=== PATIENT | female | born 1990 | race Caucasian/White ===

== ENCOUNTER 2021-02-16 15:17 | Emergency (ER) | payer OTHER, SELFPAY ==
[2021-02-16 15:18] VITALS: BP 161/84; PULSE 85; RESP 18; TEMP 36.2; O2SAT 100; BMI 23.7
--- NOTE | 2021-02-16 15:46 | EKG12_ITS ---
Test Reason : CP Blood Pressure : / mmHG Vent. Rate : 089 BPM Atrial Rate : 089 BPM P-R Int : 162 ms QRS Dur : 084 ms QT Int : 352 ms P-R-T Axes : 071 066 063 degrees QTc Int : 428 ms Normal sinus rhythm with sinus arrhythmia Normal ECG Confirmed by SAM WEST, DONALD ([id number]), manager editorial YARIEL FONTAINE ([id number]) on 02/17/2021 11:27:31 AM Referred By: THANIA Confirmed By:DONALD VARGAS MD
--- NOTE | 2021-02-16 15:47 | ED.VIS.CHEST ---
HPI History of Present Illness Chief Complaint: Chest Pain Narrative Narrative: Patient presenting with chest pain for the last 24 hours. She describes as left parasternal and mild. She states that the pain does not radiate anywhere. She states is achy in nature. She has no fever, cough, shortness of breath. She denies any trauma. She states she is dealt with pain in her chest for most of her life due to anxiety. She is currently on Adderall which is the newest medication but she has been taking this for a while. She states that this pain is different than what she is had in the past. She expressed her concern to her primary care doctor who told her to come to the ER for an evaluation. The patient states that she has no cardiac history and no history of early cardiac disease in her family. She has no DVT/PE risk factors and no history. She states other than anxiety and ADHD she has no medical problems. PFSH PFSH Medical History ADHD Anxiety Asthma Depression Former smoker Home Medications albuterol sulfate 1 - 2 puff INHALATION Q4H PRN PRN 02/16/21 [History Last Taken Unknown] dextroamphetamine-amphetamine [Adderall XR] 15 mg PO DAILY 02/16/21 [History Last Taken Unknown] vortioxetine [Trintellix] 10 mg PO DAILY 02/16/21 [History Last Taken Unknown] Allergy/AdvReac Type Severity Reaction Status Date / Time amoxicillin Allergy Rash Verified 02/16/21 15:20 Social History Smoking Status: Former smoker [facility] ED Constitutional Constitutional ED: Denies chills or fever(s) Eyes Eyes: Denies blurry vision or change in vision ENT ENT ED: Denies rhinorrhea or sore throat Cardiovascular Cardiovascular: Reports chest pain; Denies palpitations Respiratory/Chest Respiratory/Chest: Denies cough, dyspnea, dyspnea on exertion or sputum Gastrointestinal Gastrointestinal: Denies abdominal pain, nausea or vomiting Genitourinary Genitourinary ED: Denies dysuria or hematuria Musculoskeletal Musculoskeletal: Denies arthralgias or myalgias Integumentary Denies abscess or rash Neurologic Neurologic: Denies headache(s) or weakness EXAM Physical Exam Const Vital Signs: 02/16/21 15:18 02/16/21 15:55 02/16/21 16:21 Temperature 97.2 F L Temperature Source Temporal Pulse Rate 85 72 Respiratory Rate 18 15 Respiratory Effort Normal Blood Pressure 161/84 H 132/89 H Blood Pressure Mean 109 103 Pulse Ox 100 98 Oxygen Delivery Method Room Air Room Air Room Air 02/16/21 19:33 02/16/21 20:25 Temperature Temperature Source Pulse Rate 78 77 Respiratory Rate 16 18 Respiratory Effort Blood Pressure 132/95 H 122/110 H Blood Pressure Mean 107 Pulse Ox Oxygen Delivery Method Positive well developed General Appearance ED: well developed and NAD; Negative for pallor HEENT Reports moist mucous membranes normocephalic Eyes PERRL General Eye ED: Yes pale conjunctiva Chest Wall inspection of chest normal and palpation of chest normal Resp normal respiratory effort and clear to auscultation bilaterally Effort and Inspection: respiratory distress Cardio regular rate and regular rhythm GI normal to inspection, nondistended, normoactive bowel sounds Neuro oriented x3 Sensorium / Orientation: awake and alert Skin General Skin Exam: Negative for jaundice or pallor Heart Score History: Slightly/Non-Suspicious ECG: Normal Age: </= 45 years Risk Factors: No Risk Factors Troponin: </= Normal Limit Score: 0 MDM MDM MDM Narrative Medical decision making narrative: Patient presenting with left-sided chest pain. She does not have any cardiac or PE risk factors. She is PERC negative. Her vital signs are stable and she is afebrile. She was told to come to the ER by her primary care physician because she had chest pain. On exam this is not reproducible. Her lungs are clear to auscultation. EKG on my interpretation shows a sinus rhythm with a ventricular of 89 bpm without sign of ischemic change. Chest x-ray my interpretation shows no acute cardiopulmonary process and the radiologist does agree. CBC, BMP are unremarkable. Initial troponin is 5. Delta troponin is 4. Given patient's negative work-up I feel she is safe to be discharged home. I have a low suspicion for ACS and the patient again is PERC negative. Patient be discharged home in stable condition. Impression: 1. Chest pain noncardiac Lab Data Attestation: I reviewed the patient's lab results. Labs: Laboratory Results - last 24 hr 02/16/21 02/16/21 02/16/21 15:35 15:35 18:14 WBC 7.9 RBC 4.60 Hgb 13.7 Hct 41.6 MCV 90.4 MCH 29.8 MCHC 32.9 RDW Std Deviation 39.8 RDW Coeff of [place] 12.0 Plt Count 298 MPV 9.3 Immature Gran % (Auto) 0.300 Neut % (Auto) 56.1 Lymph % (Auto) 34.3 [place] % (Auto) 7.7 Eos % (Auto) 0.8 Baso % (Auto) 0.8 Absolute Neuts (auto) 4.4 Absolute Lymphs (auto) 2.71 Nucleated RBC % 0 Sodium 139 Potassium 3.6 Chloride 106 Carbon Dioxide 27.0 Anion Gap 6 BUN 14 Creatinine 0.96 Estim Creat Clear Calc 79.49 Est GFR (MDRD) Af Amer 87 Est GFR (MDRD) Non-Af 72 BUN/Creatinine Ratio 14.6 Glucose 107 H Calcium 9.6 Troponin I High Sens 5 4 Radiography Diagnostic Testing: Clinical Impression(s) from Imaging Studies Chest X-Ray 02/16/21 16:12 IMPRESSION: Nonacute portable x-ray examination of the chest. Electronically Signed: Mark Go MD ([place]) at 16:23 EST , Service support , Discharge Plan Triage Chief Complaint: Chest Pain ED Provider: Christopher Molina Dx/Rx/DC Orders Instructions: ED Chest Pain, Noncardiac Prescriptions: No Action albuterol sulfate 90 mcg/actuation HFA aerosol inhaler 1 - 2 puff INHALATION Q4H PRN PRN (Reason: Wheezing) RF: 0 dextroamphetamine-amphetamine [Adderall XR] 15 mg capsule,extended release 24hr 15 mg PO DAILY RF: 0 Trintellix 10 mg tablet 10 mg PO DAILY RF: 0 Primary Care Provider: Michelle Crespo Referrals: Michelle Crespo MD [Primary Care Provider] - Disposition Disposition: Home, Self Care Discharge Date/Time: 02/16/21 20:26
[2021-02-16 15:55] VITALS: O2SAT 98
[2021-02-16 16:11] LABS: Absolute Lymphocyte Count 2.71 X10^3/uL (0.83-4.51); Absolute Neutrophil Count 4.4 X10^3/uL (2.0-7.7); Basophil# 0.06 X10^3/uL; Basophil% 0.8 % (0-1); Eosinophil# 0.06 X10^3/uL; Eosinophils% 0.8 % (0-5); Hematocrit 41.6 % (37-47); Hemoglobin 13.7 g/dL (12.0-15.0); Lymphocyte # 2.71 X10^3/ul (0.83-4.51); Lymphocyte % 34.3 % (19-41); Mean Corp Hgb Conc 32.9 g/dL (32-36); Mean Corpuscular Hgb 29.8 pg (27.0-32.0); Mean Corpuscular Volume 90.4 fL (81-99); Mean Platelet Vol. 9.3 fl (6.2-12.0); Monocyte# 0.61 X10^3/uL; Monocyte% 7.7 % (0-10); NRBC Flagged by Analyzer 0 % (0-5); Neutrophil # 4.44 X10^3/uL (2.7-7.7); Neutrophil % 56.1 % (47-70); Platelet Count 298 K/mm3 (150-450); RBC Distribution Width SD 39.8 fl (35.1-43.9); White Blood Count 7.9 K/mm3 (4.4-11.0)
--- NOTE | 2021-02-16 16:12 | RAD_ITS ---
STUDY: X-RAY CHEST REASON FOR EXAM: Female, 30 years old. chest pain TECHNIQUE: AP COMPARISON: None. FINDINGS: EKG leads project over the chest. The lungs are clear and expanded. There is no demonstrated pleural abnormality. Normal size heart. Normal mediastinum and yessi. Normal visualized pulmonary arteries. Normal visualized aortic arch and descending thoracic aorta. Normal visualized thoracic spine. Normal visualized ribs, clavicles, and shoulders. There is no demonstrated abnormality of the visualized soft tissue structures of the upper abdomen. RAD/Chest 1 View (Portable) IMPRESSION: Nonacute portable x-ray examination of the chest. Electronically Signed: Mark Go MD ([place]) at 16:23 EST , Service support ,
[2021-02-16 16:21] VITALS: BP 132/89; PULSE 72; RESP 15
[2021-02-16 16:30] LABS: Anion Gap 6 (5-15); BUN 14 mg/dL (7-18); BUN/Creat Ratio 14.6 RATIO (10-20); Calcium,Total 9.6 mg/dL (8.5-10.1); Chloride 106 mmol/L (98-107); Creatinine, Serum 0.96 mg/dL (0.55-1.02); EST Glomerular Filtration Rate 72 mL/min (>60); Est Glom Filt Rate - Afr Amer 87 mL/min (>60); Estimated Creatinine Clearance 79.49 ml/min; Glucose 107 mg/dL (74-106); Potassium 3.6 mmol/L (3.5-5.1); Sodium Level 139 mmol/L (136-145); Troponin-I HS 5 pg/mL (3.0-54.0)
[2021-02-16 19:33] VITALS: BP 132/95; PULSE 78; RESP 16
[2021-02-16 20:04] LABS: Troponin-I HS 4 pg/mL (3.0-54.0)
[2021-02-16 20:25] VITALS: BP 122/110; PULSE 77; RESP 18
== END 2021-02-16 20:26 | disposition home or self-care (01) ==
PROVIDERS: Emergency Provider Student in an Organized Health Care Education/Training Program; PCP Internal Medicine
DX: R07.89 Other chest pain (principal); F41.9 Anxiety disorder, unspecified; F90.9 Attention-deficit hyperactivity disorder, unspecified type; F32.A Depression, unspecified; J45.909 Unspecified asthma, uncomplicated; Z79.899 Other long term (current) drug therapy; Z87.891 Personal history of nicotine dependence
CPT/HCPCS: 71045; 80048; 84484; 85025; 93005; 99285; A4216